=== PATIENT | female | born 1970 | race Caucasian/White ===

== ENCOUNTER 2022-03-05 04:19 | Day surgery (SDC) | payer OTHER ==
[2022-03-03 14:45] VITALS: BMI 26.5
[2022-03-05] MEDS ORDERED: LACTATED RINGERS SOLUTION 1,000 ML IV SCH (07:30)
[2022-03-05 10:16] VITALS: BP 103/56; PULSE 64; RESP 16; TEMP 97.1
== END 2022-03-05 10:20 | disposition home or self-care (01) ==
LOC: JASU-ENDO 04:19
PROVIDERS: ATTEND Internal Medicine Gastroenterology
PROC: 0DJD8ZZ Inspection of Lower Intestinal Tract, Via Natural or Artificial Opening Endoscopic (ICD-10-PCS; principal; 2022-03-05 08:45)
DX: Z12.11 Encounter for screening for malignant neoplasm of colon (principal); K51.90 Ulcerative colitis, unspecified, without complications
CPT/HCPCS: 81025